=== PATIENT | female | born 1965 | race African-American/Black ===

== ENCOUNTER 2021-11-12 16:23 | Emergency (ER) | payer OTHER, SELFPAY ==
[2021-11-12 16:25] VITALS: BP 163/105; PULSE 71; RESP 16; TEMP 36.3; O2SAT 100; BMI 23.4
--- NOTE | 2021-11-12 16:40 | CT_ITS ---
STUDY: CT BRAIN WITHOUT CONTRAST REASON FOR EXAM: Female, 56 years old. Fall. Pain in the back of the head. No loss of consciousness. RADIATION DOSAGE (If Supplied By Facility): CTDIvol = ( 44.99 ) mGy, DLP = ( 745.49 ) mGycm TECHNIQUE: Transaxial CT imaging of the brain was performed without administration of intravenous contrast material. Individualized dose optimization techniques were used for this CT. COMPARISON: No relevant priors. FINDINGS: Normal soft tissue structures. Normal calvarium. Normal size ventricles and extra-axial spaces for the patient''s age. Normal white matter tracts of the cerebral hemispheres. . No widening of the right sylvian fissure which may be associated with minimal volume loss. Normal basal ganglia and thalami. Normal brainstem. Normal cerebellum. There is no intracranial hemorrhage. There are no findings of an acute ischemic infarction. Normal visualized paranasal sinuses. CT/Brain/Head without Contrast IMPRESSION: No evidence of acute intracranial or calvarial abnormality. Electronically Signed: Ruperto Golden DO at 17:08 EST ,
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
== END 2021-11-12 18:04 | disposition home or self-care (01) ==
PROVIDERS: Emergency Provider Emergency Medicine; PCP Internal Medicine; Visit Provider Emergency Medicine
DX: S09.90XA Unspecified injury of head, initial encounter (principal); S43.101A Unspecified dislocation of right acromioclavicular joint, initial encounter; W03.XXXA Other fall on same level due to collision with another person, initial encounter; Y93.89 Activity, other specified; Y99.0 Civilian activity done for income or pay; Z86.73 Personal history of transient ischemic attack (TIA), and cerebral infarction without residual deficits
CPT/HCPCS: 70450; 72100; 73030; 99283